=== PATIENT | female | born 1960 ===

== ENCOUNTER 2017-05-12 09:07 | Emergency (ER) | payer MEDICAID ==
[2017-05-12 09:08] VITALS: BMI 36.9
[2017-05-12 09:23] VITALS: RESP 18; TEMP 98.7
--- NOTE | 2017-05-12 10:27 | ED PDOC ---
Arrival/HPI - General Chief Complaint: Lower Extremity Problem/Injury Time Seen by Provider: 05/12/17 09:38 Historian: Patient - History of Present Illness Narrative History of Present Illness (Text): 05/12/17 10:25 Patient c/o b/l knee pain, right more than left started yesterday. 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 Patient denies any injury. 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 - Integumentary Hx Dermatological Disorder: No - Musculoskeletal/Rheumatological Hx Musculoskeletal Disorders: No Hx Falls: No - Gastrointestinal Hx Gastrointestinal Disorders: No - Genitourinary/Gynecological Hx Genitourinary Disorders: No - Psychiatric Hx Depression: No Hx Emotional Abuse: No Hx Physical Abuse: No Hx Sexual Abuse: No Hx Substance Use: No - Past Surgical History Past Surgical History: No Previous - Anesthesia Hx Anesthesia: No Hx Anesthesia Reactions: No Hx Malignant Hyperthermia: No - Suicidal Assessment Feels Threatened In Home Enviroment: No Family/Social History Family/Social History: Unknown Family HX Smoking Status: Never Smoked Hx Alcohol Use: No Hx Substance Use: No Hx Substance Use Treatment: No Allergies/Home Meds Allergies/Adverse Reactions: Allergies No Known Allergies Allergy (Verified 06/16/16 21:41) Home Medications: Home Meds Medication Instructions Recorded Confirmed Ergocalciferol (Vitamin D2) 50,000 iu PO MON 06/16/16 06/16/16 [Vitamin D] Ceftin 500 mg PO BID 06/19/16 06/19/16 Doxycycline 100 mg PO BID 06/19/16 06/19/16 Review of Systems - Physician Review All systems were reviewed & negative as marked: Yes - Review of Systems Musculoskeletal: Other (knee pain) Physical Exam Vital Signs Reviewed: Yes Vital Signs Temp Pulse Resp BP Pulse Ox 05/12/17 11:05 68 18 155/86 H 98 05/12/17 09:08 98.7 F 70 18 159/97 H 99 Temperature: Afebrile Blood Pressure: Hypertensive Pulse: Regular Respiratory Rate: Normal Appearance: Positive for: Well-Appearing, Non-Toxic, Comfortable Pain Distress: None Mental Status: Positive for: Alert and Oriented X 3 - Systems Exam Head: Present: Atraumatic, Normocephalic Neck: Present: Normal Range of Motion. No: MIDLINE TENDERNESS, Paraspinal Tenderness Respiratory/Chest: Present: Clear to Auscultation Cardiovascular: Present: Regular Rate and Rhythm Lower Extremity: Present: Normal Inspection, NORMAL PULSES, Normal ROM, Tenderness (diffuse both knees), Capillary Refill < 2 s. No: Edema, CALF TENDERNESS, Swelling, Erythema, Temperature Abnormalties Neurological: Present: Motor Func Grossly Intact, Normal Sensory Function Skin: Present: Warm, Dry, Rashes, Normal Color. No: Erythematous, Induration, Hot Psychiatric: Present: Alert, Oriented x 3, Normal Insight, Normal Concentration Medical Decision Making ED Course and Treatment: 05/12/17 11:16 Patient will be d/c home with PMD and Orthopedist follow up. - RAD Interpretation Narrative RAD Interpretations (Text): 05/12/17 11:15 b/l osteoarthritis Radiology Orders: 05/12/17 09:52 KNEES BILATERAL [RAD] Stat Test Desk Operator: Radiologist Disposition/Present on Arrival - Present on Arrival Any Indicators Present on Arrival: No History of DVT/PE: No History of Uncontrolled Diabetes: No Urinary Catheter: No History of Decub. Ulcer: No History Surgical Site Infection Following: None - Disposition Have Diagnosis and Disposition been Completed?: Yes Diagnosis: Knee pain Disposition: HOME/ ROUTINE Disposition Time: : Condition: STABLE Discharge Instructions (ExitCare): Knee Pain (ED) Additional Instructions: Follow up with your PMD and Orthopedist within 1-2 days. Return to ED if feel worse. Prescriptions: Ibuprofen [Motrin Tab] 600 mg PO Q8 #30 tab Referrals: Van Quintanilla MD [Primary Care Provider] - Follow up with primary April Hernandez MD [Staff Provider] - Follow up with primary [facility] [Outside] - Follow up with primary Forms: [employer] (French), WORK NOTE
--- NOTE | 2017-05-12 10:45 | RAD ---
PROCEDURE: Left and Right Knee Radiographs. HISTORY: Pain. COMPARISON: None. FINDINGS: BONES: . No fracture. Bilateral patellofemoral and bilateral medial femoral tibial joint space narrowing present. Medial knee joint line and tibial spine spurring -bilateral findings so suggested Based on the available images the possibility of a of bilateral bipartite -developmental variants to each patella is question. JOINTS: Arthrosis JOINT EFFUSION: None. OTHER FINDINGS: None. IMPRESSION: Bilateral osteoarthrosis
[2017-05-12 11:06] VITALS: BP 155/86; PULSE 68; O2SAT 98
== END 2017-05-12 11:30 | disposition home or self-care (01) ==
LOC: ED 09:07
DX: M25.561 Pain in right knee (principal); M25.562 Pain in left knee; I10 Essential (primary) hypertension

== ENCOUNTER 2018-01-16 20:36 | Emergency (ER) | payer MEDICAID ==
[2018-01-16 20:59] VITALS: BMI 38.5
[2018-01-16 21:04] VITALS: RESP 18; TEMP 98.3
--- NOTE | 2018-01-16 21:20 | ED PDOC ---
Arrival/HPI - General Chief Complaint: Lower Extremity Problem/Injury Time Seen by Provider: 01/16/18 20:37 Historian: Patient - History of Present Illness Narrative History of Present Illness (Text): 01/16/18 21:17 Bambi Buenrostro is a 58 year old female, whose past medical history includes rheumatoid arthritis, who presents to the emergency department complaining of right knee pain since yesterday. Patient states she is in minimal pain. Patient denies any trauma, fever, chills, chest pain, shortness of breath, nausea, vomiting, diarrhea, back pain, neck pain, headache, dizziness, or any other complaints. Time/Duration: Other (yesterday) Symptom Onset: Gradual Symptom Course: Unchanged Activities at Onset: Light Context: Home Past Medical History - Provider Review Nursing Documentation Reviewed: Yes - Infectious Disease Hx of Infectious Diseases: None - Reproductive Menopause: Yes - Past Medical History Past Medical History: No Previous - Cardiac Hx Cardiac Disorders: Yes Hx Heart Murmur: Yes Hx Hypertension: Yes - Pulmonary Hx Respiratory Disorders: Yes (CONSOLIDATIVE INFILTRATE RIGHT MID LOBE 06-16-16) - Neurological Hx Neurological Disorder: No - HEENT Hx HEENT Disorder: No - Renal Hx Renal Disorder: No - Endocrine/Metabolic Hx Endocrine Disorders: No - Hematological/Oncological Hx Blood Disorders: Yes Other/Comment: 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 - Integumentary Hx Dermatological Disorder: No - Musculoskeletal/Rheumatological Hx Falls: No Hx Rheumatoid Arthritis: Yes - Gastrointestinal Hx Gastrointestinal Disorders: No - Genitourinary/Gynecological Hx Genitourinary Disorders: No - Psychiatric Hx Depression: No Hx Emotional Abuse: No Hx Physical Abuse: No Hx Sexual Abuse: No Hx Substance Use: No - Past Surgical History Past Surgical History: No Previous - Anesthesia Hx Anesthesia: No Hx Anesthesia Reactions: No Hx Malignant Hyperthermia: No - Suicidal Assessment Feels Threatened In Home Enviroment: No Family/Social History - Physician Review Nursing Documentation Reviewed: Yes Family/Social History: Unknown Family HX Smoking Status: Never Smoked Hx Alcohol Use: No Hx Substance Use: No Hx Substance Use Treatment: No Allergies/Home Meds Allergies/Adverse Reactions: Allergies No Known Allergies Allergy (Verified 06/16/16 21:41) Home Medications: Home Meds Medication Instructions Recorded Confirmed Ergocalciferol (Vitamin D2) 50,000 iu PO MON 06/16/16 06/16/16 [Vitamin D] Ceftin 500 mg PO BID 06/19/16 06/19/16 Doxycycline 100 mg PO BID 06/19/16 06/19/16 Review of Systems - Physician Review All systems were reviewed & negative as marked: Yes - Review of Systems Constitutional: Normal Eyes: Normal ENT: Normal Respiratory: Normal. absent: SOB, Cough Cardiovascular: Normal. absent: Chest Pain, Palpitations Gastrointestinal: Normal. absent: Abdominal Pain, Diarrhea, Nausea, Vomiting Genitourinary Female: Normal. absent: Dysuria, Frequency Musculoskeletal: Arthralgias (rigth knee pain) Skin: Normal. absent: Rash Neurological: Normal. absent: Headache, Dizziness Endocrine: Normal Hemo/Lymphatic: Normal Psychiatric: Normal Physical Exam Vital Signs Reviewed: Yes Vital Signs Temp Pulse Resp BP Pulse Ox 01/16/18 22:24 80 18 147/82 100 01/16/18 21:03 98.3 F 85 18 150/77 99 01/16/18 20:59 98.3 F Temperature: Afebrile Blood Pressure: Normal Pulse: Regular Respiratory Rate: Normal Appearance: Positive for: Well-Appearing, Non-Toxic, Comfortable Pain Distress: None Mental Status: Positive for: Alert and Oriented X 3 - Systems Exam Head: Present: Atraumatic, Normocephalic Pupils: Present: PERRL Extroacular Muscles: Present: EOMI Conjunctiva: Present: Normal Mouth: Present: Moist Mucous Membranes Neck: Present: Normal Range of Motion. No: Meningeal Signs, MIDLINE TENDERNESS , JVD Respiratory/Chest: Present: Clear to Auscultation, Good Air Exchange. No: Respiratory Distress, Accessory Muscle Use Cardiovascular: Present: Regular Rate and Rhythm, Normal S1, S2. No: Murmurs Abdomen: Present: Normal Bowel Sounds. No: Tenderness, Distention, Peritoneal Signs Back: Present: Normal Inspection Upper Extremity: Present: Normal Inspection. No: Cyanosis, Edema Lower Extremity: Present: Normal Inspection, Tenderness (right knee), Swelling. No: Edema Neurological: Present: GCS=15, CN II-XII Intact, Speech Normal Skin: Present: Warm, Dry, Normal Color. No: Rashes Psychiatric: Present: Alert, Oriented x 3, Normal Insight, Normal Concentration Medical Decision Making ED Course and Treatment: 01/16/18 22:10 Impression: 58 year old female who presents to the emergency department complaining of right knee pain since yesterday. Plan: -- Xray Right Knee -- Toradol -- Reassess and disposition Progress Notes: 01/17/18 00:40 pain improving xr neg as read by me. pt decliens crutches. no fever, joint not hot, pt able to range knee. suspect arthritis. advise outpt fu and return precautions. - Critical Care Critical Care Minutes: 75 minutes - RAD Interpretation Radiology Orders: 01/16/18 21:17 KNEE RIGHT 2 VIEWS (AP & LAT) [RAD] Stat - Medication Orders Current Medication Orders: Discontinued Medications Ketorolac Tromethamine (Toradol) 30 mg IM STAT STA Stop: 01/16/18 21:18 Last Admin: 01/16/18 21:28 Dose: 30 mg MAR Pain Assessment Document 01/16/18 21:28 AD (Rec: 01/16/18 21:28 AD [id number]) Pain Reassessment Is this a pain reassessment? No Description Intensity of Pain at present 7 IM Administration Charges Document 01/16/18 21:28 AD (Rec: 01/16/18 21:28 AD [id number]) Injection Site MAR Injection Site Right Deltoid Charges for Administration # of IM Administrations 1 - Scribe Statement The provider has reviewed the documentation as recorded by the Scribe Jazzmine Narayan All medical record entries made by the Scribe were at my direction and personally dictated by me. I have reviewed the chart and agree that the record accurately reflects my personal performance of the history, physical exam, medical decision making, and the department course for this patient. I have also personally directed, reviewed, and agree with the discharge instructions and disposition. Disposition/Present on Arrival - Present on Arrival Any Indicators Present on Arrival: No History of DVT/PE: No History of Uncontrolled Diabetes: No Urinary Catheter: No History of Decub. Ulcer: No History Surgical Site Infection Following: None - Disposition Have Diagnosis and Disposition been Completed?: Yes Diagnosis: Knee pain Disposition: HOME/ ROUTINE Disposition Time: 00:40 Condition: STABLE Discharge Instructions (ExitCare): Osteoarthritis, Knee Pain Additional Instructions: please follo wup with your doctor. return to with worsening symptoms or concerns. Prescriptions: Naproxen [Naprosyn] 500 mg PO BID PRN #14 tablet PRN Reason: Pain, Mild (1-3) Referrals: [facility] [Outside] - Follow up with primary [facility] [place] [Outside] - Follow up with primary [facility] [place] [Outside] - Follow up with primary [facility] Jelena Remagaly, [Primary Care Provider] - Follow up with primary Forms: [employer] (Tristanian)
[2018-01-16 23:15] VITALS: BP 147/82; PULSE 80; O2SAT 100
--- NOTE | 2018-01-17 10:16 | RAD ---
PROCEDURE: Right Knee Radiographs. HISTORY: Pain COMPARISON: None. FINDINGS: BONES: Bone alignment and mineralization are normal. There is no acute fracture or bone destruction. JOINTS: There is mild tricompartmental degenerative osteoarthrosis with reduced joint spaces, marginal osteophytes fights and tibial spiking. JOINT EFFUSION: There is a small suprapatellar joint effusion. OTHER FINDINGS: None. IMPRESSION: Mild tricompartmental degenerative osteoarthrosis, worse in the medial compartment. Small suprapatellar joint effusion.
== END 2018-01-16 22:24 | disposition home or self-care (01) ==
LOC: ED 20:36
DX: M25.561 Pain in right knee (principal); M06.9 Rheumatoid arthritis, unspecified; I10 Essential (primary) hypertension
CPT/HCPCS: 73560; 96372; 99284; J1885

== ENCOUNTER 2018-01-22 18:16 | Emergency (ER) | payer MEDICAID ==
[2018-01-22 18:17] VITALS: BMI 38.5
[2018-01-22 18:43] VITALS: BP 146/79; PULSE 74; RESP 18; TEMP 98.1; O2SAT 98
--- NOTE | 2018-01-22 18:57 | ED PDOC ---
Arrival/HPI - General Time Seen by Provider: 01/22/18 18:56 Historian: Patient - History of Present Illness Narrative History of Present Illness (Text): 01/22/18 18:56 58 y/o female, pmh including hypovitaminosis to vitamin D, nkda, c/o Past Medical History - Infectious Disease Hx of Infectious Diseases: None - Past Medical History Past Medical History: No Previous - Cardiac Hx Cardiac Disorders: Yes Hx Heart Murmur: Yes Hx Hypertension: Yes - Pulmonary Hx Respiratory Disorders: Yes (CONSOLIDATIVE INFILTRATE RIGHT MID LOBE 06-16-16) - Neurological Hx Neurological Disorder: No - HEENT Hx HEENT Disorder: No - Renal Hx Renal Disorder: No - Endocrine/Metabolic Hx Endocrine Disorders: No - Hematological/Oncological Hx Blood Disorders: Yes Other/Comment: 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 - Integumentary Hx Dermatological Disorder: No - Musculoskeletal/Rheumatological Hx Falls: No Hx Rheumatoid Arthritis: Yes - Gastrointestinal Hx Gastrointestinal Disorders: No - Genitourinary/Gynecological Hx Genitourinary Disorders: No - Psychiatric Hx Depression: No Hx Emotional Abuse: No Hx Physical Abuse: No Hx Sexual Abuse: No Hx Substance Use: No - Past Surgical History Past Surgical History: No Previous - Anesthesia Hx Anesthesia: No Hx Anesthesia Reactions: No Hx Malignant Hyperthermia: No - Suicidal Assessment Feels Threatened In Home Enviroment: No Family/Social History Smoking Status: Never Smoked Hx Alcohol Use: No Hx Substance Use: No Hx Substance Use Treatment: No Allergies/Home Meds Allergies/Adverse Reactions: Allergies No Known Allergies Allergy (Verified 06/16/16 21:41) Home Medications: Home Meds Medication Instructions Recorded Confirmed Ergocalciferol (Vitamin D2) 50,000 iu PO MON 06/16/16 06/16/16 [Vitamin D] Ceftin 500 mg PO BID 06/19/16 06/19/16 Doxycycline 100 mg PO BID 06/19/16 06/19/16 Physical Exam Vital Signs Temp Pulse Resp BP Pulse Ox 01/22/18 18:41 98.1 F 74 18 146/79 98 Disposition/Present on Arrival - Present on Arrival History of DVT/PE: No History of Uncontrolled Diabetes: No Urinary Catheter: No History Surgical Site Infection Following: None - Disposition
[2018-01-22] MEDS ORDERED: Oxycodone/Acetaminophen 5/325 mg Tab PO STA ×2 (19:03→19:05)
--- NOTE | 2018-01-22 19:17 | ED PDOC ---
Arrival/HPI - General Chief Complaint: Lower Extremity Problem/Injury Time Seen by Provider: 01/22/18 18:56 Historian: Patient - History of Present Illness Narrative History of Present Illness (Text): 01/22/18 19:17 A 58 year old female, whose past medical history includes Rheumatoid Arthritis, no food or drug allergies, presents to the emergency department complaining of right knee pain for a week. Patient last reported to the emergency department five days ago, right knee xray showed no acute fracture or dislocation but there is degenerative changes, patient still complaining of right knee pain. Patient reports she is scheduled to see her orthopedc on 01/25/18. Patient stated her pain radiates up to her thigh but no back pain. Patient denies any urinary or bowel incontinence or retention. Pt. has no chest pain or shortness of breath, no numbness or tingling, no other medical or psychological complaints. Time/Duration: 1 week Symptom Onset: Sudden Symptom Course: Unchanged Activities at Onset: Rest Past Medical History - Provider Review Nursing Documentation Reviewed: Yes - Infectious Disease Hx of Infectious Diseases: None - Reproductive Menopause: No - Past Medical History Past Medical History: No Previous - Cardiac Hx Cardiac Disorders: Yes Hx Heart Murmur: Yes Hx Hypertension: Yes - Pulmonary Hx Respiratory Disorders: Yes (CONSOLIDATIVE INFILTRATE RIGHT MID LOBE 06-16-16) - Neurological Hx Neurological Disorder: No - HEENT Hx HEENT Disorder: No - Renal Hx Renal Disorder: No - Endocrine/Metabolic Hx Endocrine Disorders: No - Hematological/Oncological Hx Blood Disorders: Yes Other/Comment: 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 - Integumentary Hx Dermatological Disorder: No - Musculoskeletal/Rheumatological Hx Falls: No Hx Rheumatoid Arthritis: Yes - Gastrointestinal Hx Gastrointestinal Disorders: No - Genitourinary/Gynecological Hx Genitourinary Disorders: No - Psychiatric Hx Depression: No Hx Emotional Abuse: No Hx Physical Abuse: No Hx Sexual Abuse: No Hx Substance Use: No - Past Surgical History Past Surgical History: No Previous - Anesthesia Hx Anesthesia: No Hx Anesthesia Reactions: No Hx Malignant Hyperthermia: No - Suicidal Assessment Feels Threatened In Home Enviroment: No Family/Social History - Physician Review Nursing Documentation Reviewed: Yes Family/Social History: No Known Family HX Smoking Status: Never Smoked Hx Alcohol Use: No Hx Substance Use: No Hx Substance Use Treatment: No Allergies/Home Meds Allergies/Adverse Reactions: Allergies No Known Allergies Allergy (Verified 06/16/16 21:41) Home Medications: Home Meds Medication Instructions Recorded Confirmed Ergocalciferol (Vitamin D2) 50,000 iu PO MON 06/16/16 06/16/16 [Vitamin D] Ceftin 500 mg PO BID 06/19/16 06/19/16 Doxycycline 100 mg PO BID 06/19/16 06/19/16 Review of Systems - Physician Review All systems were reviewed & negative as marked: Yes - Review of Systems Constitutional: absent: Fatigue, Fevers Respiratory: absent: SOB, Cough Cardiovascular: absent: Chest Pain Gastrointestinal: absent: Abdominal Pain, Nausea, Vomiting Musculoskeletal: Arthralgias, Joint Swelling (right knee). absent: Back Pain, Neck Pain, Myalgias Skin: absent: Rash Neurological: absent: Headache, Dizziness Psychiatric: absent: Anxiety, Depression Physical Exam Vital Signs Reviewed: Yes Vital Signs Temp Pulse Resp BP Pulse Ox 01/22/18 18:41 98.1 F 74 18 146/79 98 Temperature: Afebrile Blood Pressure: Normal Pulse: Regular Respiratory Rate: Normal Appearance: Positive for: Well-Appearing, Non-Toxic, Comfortable Pain Distress: Severe Mental Status: Positive for: Alert and Oriented X 3 - Systems Exam Head: Present: Atraumatic, Normocephalic Pupils: Present: PERRL Extroacular Muscles: Present: EOMI Conjunctiva: Present: Normal Mouth: Present: Moist Mucous Membranes Neck: Present: Normal Range of Motion Respiratory/Chest: Present: Clear to Auscultation, Good Air Exchange. No: Respiratory Distress, Accessory Muscle Use Cardiovascular: Present: Regular Rate and Rhythm, Normal S1, S2. No: Murmurs Abdomen: No: Tenderness, Distention, Peritoneal Signs Back: Present: Normal Inspection Upper Extremity: Present: Normal Inspection. No: Cyanosis, Edema Lower Extremity: Present: Swelling (generalized swelling posterior aspect of right knee and anterior), Neurovascularly Intact, Other (RLE: +ttp on the anterior aspect of the knee with mild swelling, negative calderon and ruiz signs, no cellulitis or streaking, no ulcers, +DPPT pulses, capillary refill< 2 seconds, neurovascular intact. ). No: Erythema Neurological: Present: GCS=15, Speech Normal, Motor Func Grossly Intact, Memory Normal Skin: Present: Warm, Dry, Normal Color. No: Rashes Psychiatric: Present: Alert, Oriented x 3, Normal Insight, Normal Concentration Medical Decision Making ED Course and Treatment: 01/22/18 19:13 Impression: A 58 year old female with right knee pain. Plan: -- US lower extremity -- Toradol, Percocet -- Reassess and disposition 01/22/18 20:22 -RLE Venuous doppler: as per preliminary report, no acute DVT -Pain decreased and the patient feels better. -Discharge home with dicloflenac, ramon wrap, crutches, ice compression, weight bearing prn, follow up with your own pmd and orthopedic within 2 days, return to the ER for any new or worsening signs or symptoms. - RAD Interpretation Radiology Orders: 01/22/18 19:03 DUPLEX LOWER EXTRM VEIN RIGHT [US] Stat -RLE Venuous doppler: as per preliminary report, no acute DVT Rotor Blade Installer: Radiologist - Medication Orders Current Medication Orders: Discontinued Medications Ketorolac Tromethamine (Toradol) 60 mg IM STAT STA Stop: 01/22/18 19:04 Last Admin: 01/22/18 19:19 Dose: 60 mg MAR Pain Assessment Document 01/22/18 19:19 CNR (Rec: 01/22/18 19:19 CNR [id number]) Pain Reassessment Is this a pain reassessment? Yes IM Administration Charges Document 01/22/18 19:19 CNR (Rec: 01/22/18 19:19 CNR [id number]) Injection Site MAR Injection Site Right Vastus Lateralis Charges for Administration # of IM Administrations 1 Oxycodone/Acetaminophen (Percocet 5/325 Mg Tab) 2 tab PO STAT STA Stop: 01/22/18 19:06 Last Admin: 01/22/18 19:18 Dose: 2 tab MAR Pain Assessment Document 01/22/18 19:18 CNR (Rec: 01/22/18 19:18 CNR [id number]) Pain Reassessment Is this a pain reassessment? Yes Location Left, Right or Bilateral Right Pain Location Body Site Knee Description Description Constant Aggravating Factors Exercise/Activity - PA / SEAMER / Resident Statement MD/DO has reviewed & agrees with the documentation as recorded. - Scribe Statement The provider has reviewed the documentation as recorded by the Dinh Sotelo Provider Scribe Attestation: All medical record entries made by the Scribe were at my direction and personally dictated by me. I have reviewed the chart and agree that the record accurately reflects my personal performance of the history, physical exam, medical decision making, and the department course for this patient. I have also personally directed, reviewed, and agree with the discharge instructions and disposition. Disposition/Present on Arrival - Present on Arrival Any Indicators Present on Arrival: No History of DVT/PE: No History of Uncontrolled Diabetes: No Urinary Catheter: No History of Decub. Ulcer: No History Surgical Site Infection Following: None - Disposition Have Diagnosis and Disposition been Completed?: Yes Diagnosis: Degenerative joint disease, Knee pain Disposition: HOME/ ROUTINE Disposition Time: 19:27 Patient Plan: Discharge Patient Problems: Current Active Problems Problem Status Onset Degenerative joint disease Acute Condition: GOOD Additional Instructions: -Discharge home with dicloflenac, ramon wrap, crutches, ice compression, weight bearing prn, follow up with your own pmd and orthopedic within 2 days, return to the ER for any new or worsening signs or symptoms. Prescriptions: Diclofenac Sodium 50 mg PO TID PRN #40 tab PRN Reason: Other Referrals: Van Quintanilla MD [Primary Care Provider] - Follow up with primary Ck Pringle MD [Staff Provider] - Follow up with primary Forms: WORK NOTE
--- NOTE | 2018-01-24 08:42 | US ---
PROCEDURE: Right lower extremity venous US HISTORY: Leg pain and swelling. Evaluate for DVT. PHYSICIAN(S): Giovany Haney M.D. TECHNIQUE: Duplex sonography and color-flow Doppler with graded compression were used to evaluate the deep venous system of the right lower extremity. The exam is limited by body habitus. The tibial veins are not adequately seen. FINDINGS: The visualized deep venous system of the right lower extremity is sonographically normal and compressible. Normal waveforms and augmentation are seen. There is no sonographic evidence for deep venous thrombosis in the visualized segments of the right lower extremity. IMPRESSION: 1. No sonographic evidence for deep venous thrombosis in the visualized segments of the right lower extremity. 2. Limited study.
== END 2018-01-22 21:04 | disposition home or self-care (01) ==
LOC: ED 18:16
DX: M17.11 Unilateral primary osteoarthritis, right knee (principal); M25.561 Pain in right knee
CPT/HCPCS: 93971; 96372; 99284; J1885

== ENCOUNTER 2018-04-05 19:50 | Emergency (ER) | payer MEDICAID ==
[2018-04-05 19:51] VITALS: BMI 38.5
[2018-04-05 20:26] VITALS: BP 158/84; PULSE 78; RESP 16; TEMP 98.5; O2SAT 97
--- NOTE | 2018-04-05 20:48 | ED PDOC ---
Arrival/HPI - General Chief Complaint: Upper Extremity Problem/Injury Time Seen by Provider: 04/05/18 20:34 Historian: Patient - History of Present Illness Narrative History of Present Illness (Text): 04/05/18 20:45 58yo female with pmhx of hypertension who present with nonpainful lump to her right upper arm. Patient states she noticed the lump today. States she is having intermittent tingling on her right hand since yesterday. She denies fever , redness, discharge, focal weakness, nausea, vomiting, trauma, chest pain, SOB , any other complaint. Past Medical History - Provider Review Nursing Documentation Reviewed: Yes - Infectious Disease Hx of Infectious Diseases: None - Reproductive Menopause: Yes - Past Medical History Past Medical History: No Previous - Cardiac Hx Cardiac Disorders: Yes Hx Heart Murmur: Yes Hx Hypertension: Yes - Pulmonary Hx Respiratory Disorders: Yes (CONSOLIDATIVE INFILTRATE RIGHT MID LOBE 06-16-16) - Neurological Hx Neurological Disorder: No - HEENT Hx HEENT Disorder: No - Renal Hx Renal Disorder: No - Endocrine/Metabolic Hx Endocrine Disorders: No - Hematological/Oncological Hx Blood Disorders: Yes Other/Comment: 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 - Integumentary Hx Dermatological Disorder: No - Musculoskeletal/Rheumatological Hx Musculoskeletal Disorders: Yes Hx Rheumatoid Arthritis: Yes - Gastrointestinal Hx Gastrointestinal Disorders: No - Genitourinary/Gynecological Hx Genitourinary Disorders: No - Psychiatric Hx Psychophysiologic Disorder: No Hx Substance Use: No - Past Surgical History Past Surgical History: No Previous - Anesthesia Hx Anesthesia: No Hx Anesthesia Reactions: No Hx Malignant Hyperthermia: No - Suicidal Assessment Feels Threatened In Home Enviroment: No Family/Social History - Physician Review Nursing Documentation Reviewed: Yes Family/Social History: Unknown Family HX Smoking Status: Never Smoked Hx Alcohol Use: No Hx Substance Use: No Hx Substance Use Treatment: No Allergies/Home Meds Allergies/Adverse Reactions: Allergies No Known Allergies Allergy (Verified 04/05/18 20:23) Review of Systems - Physician Review All systems were reviewed & negative as marked: Yes - Review of Systems Constitutional: Normal Eyes: Normal ENT: Normal Respiratory: Normal Cardiovascular: Normal Gastrointestinal: Normal Genitourinary Female: Normal Musculoskeletal: Normal Skin: Other (Right upper arm lump) Neurological: Normal Endocrine: Normal Hemo/Lymphatic: Normal Psychiatric: Normal Physical Exam Vital Signs Reviewed: Yes Vital Signs Temp Pulse Resp BP Pulse Ox 04/05/18 20:24 98.5 F 78 16 158/84 H 97 Temperature: Afebrile Blood Pressure: Normal Pulse: Regular Respiratory Rate: Normal Appearance: Positive for: Well-Appearing, Non-Toxic, Comfortable Pain Distress: None Mental Status: Positive for: Alert and Oriented X 3 - Systems Exam Head: Present: Atraumatic, Normocephalic Pupils: Present: PERRL Extroacular Muscles: Present: EOMI Conjunctiva: Present: Normal Mouth: Present: Moist Mucous Membranes Neck: Present: Normal Range of Motion Respiratory/Chest: Present: Clear to Auscultation, Good Air Exchange. No: Respiratory Distress, Accessory Muscle Use Cardiovascular: Present: Regular Rate and Rhythm, Normal S1, S2. No: Murmurs Abdomen: No: Tenderness, Distention, Peritoneal Signs Back: Present: Normal Inspection Upper Extremity: Present: Normal ROM, NORMAL PULSES, Neurovascularly Intact, Other (Approximately nontender, moveable mass noted to distal dorsal right forearm). No: Cyanosis, Edema, Tenderness, Swelling, Erythema, Temperature Abnormalties Lower Extremity: Present: Normal Inspection. No: Edema Neurological: Present: GCS=15, CN II-XII Intact, Speech Normal Skin: Present: Warm, Dry, Normal Color, Other (approximately 2 x 2cm nontender, moveable mass noted to distal right upper dorsal forearm). No: Rashes Psychiatric: Present: Alert, Oriented x 3, Normal Insight, Normal Concentration Medical Decision Making ED Course and Treatment: 04/06/18 02:40 Pt was reassured and advised to f/u with her PMD/surgeon. she however requested blood work and was told that blood test will not reveal anything. she then left the ED without singing her DC. Disposition/Present on Arrival - Present on Arrival Any Indicators Present on Arrival: No History of DVT/PE: No History of Uncontrolled Diabetes: No Urinary Catheter: No History of Decub. Ulcer: No History Surgical Site Infection Following: None - Disposition Have Diagnosis and Disposition been Completed?: Yes Diagnosis: Lipoma Disposition: HOME/ ROUTINE Disposition Time: 20:50 Patient Plan: Discharge Condition: STABLE Additional Instructions: Follow up with your doctor/surgeon Return to ED for any new symptoms Referrals: Clint Varela MD [Staff Provider] - Follow up with primary Forms: [employer] (N[place]alese)
== END 2018-04-05 20:49 | disposition home or self-care (01) ==
LOC: ED 19:50
DX: D17.21 Benign lipomatous neoplasm of skin and subcutaneous tissue of right arm (principal)

== ENCOUNTER 2018-07-20 09:31 | Emergency (ER) | payer MEDICAID ==
[2018-07-20 09:48] VITALS: BMI 36.6
[2018-07-20 09:49] VITALS: RESP 18; TEMP 98.8; O2SAT 96
--- NOTE | 2018-07-20 10:50 | ED PDOC ---
Arrival/HPI - General Chief Complaint: Lower Extremity Problem/Injury Time Seen by Provider: 07/20/18 10:31 Historian: Patient - History of Present Illness Narrative History of Present Illness (Text): 07/20/18 10:46 58-year-old female presents today with pain in the left buttocks and left posterior thigh. Patient states she's been having pain for the past week taking Motrin without improvement. Patient states the pain is worse with movement or worse with walking. She denies numbness weakness or tingling in the extremity. Patient denies abdominal pain. No nausea or vomiting. She denies fevers or chills. She denies trauma or injury. She denies bladder or bowel incontinence. Patient denies pain in the lower back. Past Medical History - Provider Review Nursing Documentation Reviewed: Yes - Travel History Have you recently traveled outside [place] w/in the past 3 mons?: No - Infectious Disease Hx of Infectious Diseases: None - Past Medical History Past Medical History: No Previous - Cardiac Hx Cardiac Disorders: Yes Hx Heart Murmur: Yes Hx Hypertension: Yes - Pulmonary Hx Respiratory Disorders: Yes (CONSOLIDATIVE INFILTRATE RIGHT MID LOBE 06-16-16) - Neurological Hx Neurological Disorder: No - HEENT Hx HEENT Disorder: No - Renal Hx Renal Disorder: No - Endocrine/Metabolic Hx Endocrine Disorders: No - Hematological/Oncological Hx Blood Disorders: Yes Other/Comment: 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 - Integumentary Hx Dermatological Disorder: No - Musculoskeletal/Rheumatological Hx Musculoskeletal Disorders: Yes Hx Rheumatoid Arthritis: Yes - Gastrointestinal Hx Gastrointestinal Disorders: No - Genitourinary/Gynecological Hx Genitourinary Disorders: No - Psychiatric Hx Psychophysiologic Disorder: No Hx Substance Use: No - Past Surgical History Past Surgical History: No Previous - Anesthesia Hx Anesthesia: No Hx Anesthesia Reactions: No Hx Malignant Hyperthermia: No - Suicidal Assessment Feels Threatened In Home Enviroment: No Family/Social History - Physician Review Nursing Documentation Reviewed: Yes Family/Social History: Unknown Family HX Smoking Status: Never Smoked Hx Alcohol Use: No Hx Substance Use: No Hx Substance Use Treatment: No Allergies/Home Meds Allergies/Adverse Reactions: Allergies No Known Allergies Allergy (Verified 04/05/18 20:23) Review of Systems - Review of Systems Constitutional: absent: Fatigue, Fevers Respiratory: absent: SOB, Cough Cardiovascular: absent: Chest Pain Gastrointestinal: absent: Abdominal Pain, Nausea, Vomiting Genitourinary Female: absent: Dysuria Musculoskeletal: Arthralgias. absent: Back Pain, Neck Pain Skin: absent: Rash, Pruritis Neurological: absent: Headache, Dizziness Psychiatric: absent: Anxiety, Depression Physical Exam Vital Signs Reviewed: Yes Vital Signs Temp Pulse Resp BP Pulse Ox 07/20/18 09:48 98.8 F 64 18 135/73 96 Temperature: Afebrile Blood Pressure: Normal Pulse: Regular Respiratory Rate: Normal Appearance: Positive for: Well-Appearing, Non-Toxic, Comfortable Pain Distress: None Mental Status: Positive for: Alert and Oriented X 3 - Systems Exam Head: Present: Atraumatic Mouth: Present: Moist Mucous Membranes Neck: Present: Normal Range of Motion Respiratory/Chest: Present: Clear to Auscultation, Good Air Exchange. No: Respiratory Distress, Accessory Muscle Use Cardiovascular: Present: Regular Rate and Rhythm, Normal S1, S2. No: Murmurs Abdomen: No: Tenderness, Rebound, Guarding Back: Present: Normal Inspection, Other (+ ttp over left sciatic foramen. no edema, no erythema, no ecchymosis; stiff full rom of back. ). No: Midline Tenderness, Paraspinal Tenderness Lower Extremity: Present: Normal Inspection, NORMAL PULSES, Normal ROM, Tenderness (+ minimal posterior thigh tenderness. ), Neurovascularly Intact, Capillary Refill < 2 s. No: CALF TENDERNESS, Swelling, Erythema, Deformity Neurological: Present: GCS=15, Speech Normal Skin: Present: Warm, Dry, Normal Color. No: Rashes Psychiatric: Present: Alert, Oriented x 3 Medical Decision Making ED Course and Treatment: 07/20/18 10:50 Patient nontoxic well-appearing in no distress with stable vital signs. Toradol, Flexeril Patient reassessment: Feeling better with medications ambulating with a steady gait. Muscle strength 5 out of 5 bilaterally. I advised to followup with the orthopedist/back specialist within the next 2 days. Return if symptoms worsen persist or new symptoms develop Patient verbalizes understanding of discharge instructions and need for immediate followup. all aspects of this case were discussed the attending of record. Impression: leg pain, sciatica Motrin every 6 hours as needed for pain Flexeril one tablet every 8 hours as needed for muscle spasms: May cause drowsiness Followup with the orthopedist within the next 2 days Followup with primary care physician within the next 2 days Return if symptoms worsen persist or if new symptoms develop Reassessment Condition: Re-examined, Improved - Medication Orders Current Medication Orders: Discontinued Medications Cyclobenzaprine HCl (Flexeril) 10 mg PO STAT STA Stop: 07/20/18 10:32 Last Admin: 07/20/18 10:41 Dose: 10 mg Ketorolac Tromethamine (Toradol) 60 mg IM STAT STA Stop: 07/20/18 10:32 Last Admin: 07/20/18 10:41 Dose: 60 mg MAR Pain Assessment Document 07/20/18 10:41 EQ (Rec: 07/20/18 10:41 EQ [id number]) Pain Reassessment Is this a pain reassessment? No Sleep Is patient sleeping during reassessment? No Presence of Pain Presence of Pain Yes IM Administration Charges Document 07/20/18 10:41 EQ (Rec: 07/20/18 10:41 EQ [id number]) Charges for Administration # of IM Administrations 1 Disposition/Present on Arrival - Present on Arrival Any Indicators Present on Arrival: No History of DVT/PE: No History of Uncontrolled Diabetes: No Urinary Catheter: No History of Decub. Ulcer: No History Surgical Site Infection Following: None - Disposition Have Diagnosis and Disposition been Completed?: Yes Diagnosis: Leg pain, Sciatica Disposition: HOME/ ROUTINE Disposition Time: 10:45 Patient Plan: Discharge Patient Problems: Current Active Problems Problem Status Onset Leg pain Acute Condition: GOOD Discharge Instructions (ExitCare): Sciatica (DC) Additional Instructions: Motrin every 6 hours as needed for pain Flexeril one tablet every 8 hours as needed for muscle spasms: May cause drowsiness Followup with the orthopedist within the next 2 days Followup with primary care physician within the next 2 days Return if symptoms worsen persist or if new symptoms develop Prescriptions: Cyclobenzaprine [Cyclobenzaprine HCl] 10 mg PO Q8 #10 tab Ibuprofen [Motrin] 600 mg PO Q6H PRN #20 tab PRN Reason: pain/fever reduction Referrals: Van Quintanilla MD [Primary Care Provider] - Follow up with primary Virgil Saunders MD [Staff Provider] - Follow up with primary Forms: [employer] ([place]), WORK NOTE
[2018-07-20 11:03] VITALS: BP 131/69; PULSE 61
== END 2018-07-20 12:03 | disposition home or self-care (01) ==
LOC: ED 09:31
DX: M54.30 Sciatica, unspecified side (principal)
CPT/HCPCS: 96372; 99283; J1885